=== PATIENT | male | born 1995 | race Hispanic/Latino ===

== ENCOUNTER 2021-08-17 15:04 | Emergency (ER) | payer SELFPAY ==
[~2021-08-17] VITALS: Ht 175.3 cm; Wt 148.8 kg
[2021-08-17] MEDS ORDERED: CASIRIVIMAB/IMDEVIMAB 10 ML in SODIUM CHLORIDE 0.9% 100 ML IV ONE (15:30)
[2021-08-17 16:24] VITALS: BP 121/78
== END 2021-08-17 16:25 | disposition home or self-care (01) ==
LOC: ER 15:24
DX: U07.1 COVID-19 (principal); R05.9 Cough, unspecified; R53.83 Other fatigue
CPT/HCPCS: 99283; J7050